=== PATIENT | female | born 1975 | race Caucasian/White ===

== ENCOUNTER → 2017-12-10 14:25 | Outpatient (CLI) | payer OTHER, SELFPAY ==
[2017-12-10 16:55] LABS: Absolute Lymphocyte Count 1.45 X10^3/ul (0.83-4.51); Absolute Neutrophil Count 2.2 X10^3/uL (2.0-7.7); Basophil# 0.04 X10^3/uL; Eosinophil# 0.05 X10^3/uL; Eosinophils% 1.2 % (0-5); Hematocrit 21.4 % (37-47); Lymphocyte # 1.45 X10^3/ul (4.0); Lymphocyte % 35.8 % (19-41); Mean Corp Hgb Conc 27.6 g/gl (32-36); Mean Corpuscular Hgb 18.4 pg (27.0-32.0); Mean Corpuscular Volume 66.9 fL (81-99); Mean Platelet Vol. 11.2 fl (6.2-12.0); Monocyte# 0.31 X10^3/uL; Monocyte% 7.7 % (0-10); Neutrophil # 2.19 X10^3/uL (2.7-7.7); Neutrophil % 54.1 % (47-70); Platelet Count 256 K/mm3 (150-450); RBC Distribution Width CV 17.1 % (11.6-14.6); RBC Distribution Width SD 42.3 fl (35.1-43.9); White Blood Count 4.1 K/mm3 (4.4-11.0)
[2017-12-10 17:01] LABS: Differential Indicated SCAN CRITERIA MET; POSITIVE COUNT YES; POSITIVE DIFFERENTIAL NO; POSITIVE MORPHOLOGY YES
[2017-12-10 17:09] LABS: Hemoglobin 5.9 g/dl (12.0-15.0)
[2017-12-10 17:22] LABS: Anisocytosis 1+; Hypochromasia 1+; Platelet Estimate ADEQUATE (ADEQ); Polychromasia RARE
[2017-12-10 17:23] LABS: Microcytosis 3+
[2017-12-11 12:17] LABS: Pathologist Review Reviewed
== END ==
PROVIDERS: Family Provider Family Medicine; PCP Family Medicine; Visit Provider Nurse Practitioner Adult Health
DX: D64.9 Anemia, unspecified (principal)
CPT/HCPCS: 36415; 85025

== ENCOUNTER → 2017-12-12 10:03 | Outpatient (CLI) | payer OTHER, SELFPAY ==
[2017-12-12] VITALS (7 sets, daily range): BP systolic 92–106; BP diastolic 54–65; PULSE 74–96; RESP 16–18; TEMP 36.3–37.2; O2SAT 98–100; BMI 22.6
== END ==
PROVIDERS: Family Provider Family Medicine; PCP Family Medicine; Visit Provider Family Medicine
DX: D64.9 Anemia, unspecified (principal)
CPT/HCPCS: 36430; 86850; 86900; 86920; 86922; J7050; P9016; A4216

== ENCOUNTER 2018-03-04 10:15 | Day surgery (SDC) | payer OTHER, SELFPAY ==
[2018-03-04] VITALS (8 sets, daily range): BP systolic 102–120; BP diastolic 65–82; PULSE 61–70; RESP 16–18; TEMP 36.4–36.5; O2SAT 95–100; BMI 22.4
[2018-03-04 10:45] LABS: Internal QC Validated? YES +Cl - CLEAR BKGD; Pregnancy, Urine Negative Negative
[2018-03-04 10:49] LABS: Hemoglobin 9.5 g/dl (12.0-15.0); Mean Corp Hgb Conc 29.7 g/gl (32-36); Mean Corpuscular Hgb 22.1 pg (27.0-32.0); Mean Corpuscular Volume 74.4 fL (81-99); Mean Platelet Vol. 11.1 fl (6.2-12.0); Platelet Count 246 K/mm3 (150-450); RBC Distribution Width CV 16.3 % (11.6-14.6); Scan Indicated on CBC? Y/N YES- FLAGS NOTED; White Blood Count 3.7 K/mm3 (4.4-11.0)
[2018-03-04 11:05] LABS: Differential Comment SCANNED
--- NOTE | 2018-03-04 11:47 | PCM.DC.D&C ---
Discharge Diet: No Restrictions Discharge Activity: Return to Normal Activity, May Shower, May Take a Tub Bath - in 2 weeks. Allergies/Adverse Reactions: Allergies No Known Allergies Allergy (Verified 12/12/17 10:19) Medications to take at Discharge Escitalopram Oxalate [Lexapro] 20 mg PO DAILY 12/12/17 traZODone [Desyrel] 50 mg PO QHS 12/12/17 Primary Care Physician: Eduardo Minor MD [Primary Care Provider] - Please Follow Up With: Lola Cortez MD When: as scheduled for post op visit
--- NOTE | 2018-03-04 12:15 | OP.PCM_ITS ---
Operative Report Date of Procedure: 03/04/18 Surgeon: Dr. Lola Cortez Maintenance Worker House Trailer: None Pre op diagnosis: AUB Post op Diagnosis: same Procedure performed: Hysteroscopy, Susi Ablation Complications: none EBL: 5cc Anesthesia: MAC Findings: uterus sounded to implantable devices: none fluids: 400cc IV Crystalloids After informed consent was obtained patient taken to the operating room she is placed in supine position she is given anesthesia simply self insert she is prepped draped normal sterile fashion. Bladder was drained prior to the start of the procedure. At this time the weighted speculum was placed the posterior fornix of the vagina then a single-tooth tenaculum was used to grasp the anterior lip of the cervix. At this time the uterus was sounded to approximately 9cm the endocervical canal sounded to 4 cm. Next cervix was dilated in incremental fashion. Once adequate dilatation was achieved the hysteroscope was inserted using normal saline as distention medium. On hysteroscopy there were no gross abnormalities. Both tubal ostia were visualized. At this time the Susi device was opened. The Susi was set at 5 cm. The device was activated. Prior to activation the field test was performed and cavity was intact. The device was then fired and activated for 120 seconds. Once the 120 seconds was completed the device was removed intact and the tenaculum was removed. Good hemostasis was appreciated. Weighted speculum was removed. Vaginal sweep was performed is negative. There were no complications. Anticipated normal postoperative course for this patient. Instrument and lap count were correct ?2.
== END 2018-03-04 13:37 | disposition home or self-care (01) ==
LOC: SDC 10:15 → AC 10:18
PROVIDERS: Family Provider Family Medicine; PCP Family Medicine; Visit Provider Obstetrics & Gynecology
PROC: 0U5B8ZZ Destruction of Endometrium, Via Natural or Artificial Opening Endoscopic (ICD-10-PCS; CPT 58558; principal; 2018-03-04 11:30)
DX: F32.9 Major depressive disorder, single episode, unspecified (principal); Z79.899 Other long term (current) drug therapy; Z86.2 Personal history of diseases of the blood and blood-forming organs and certain disorders involving the immune mechanism; F41.9 Anxiety disorder, unspecified
CPT/HCPCS: 00952; 58563; 81025; 85027; J7120; J2405

== ENCOUNTER → 2019-07-07 17:59 | Outpatient (CLI) | payer OTHER, SELFPAY ==
[2019-07-13 12:51] LABS: HPV Reflexed? NOT INDICATED
== END ==
PROVIDERS: Family Provider Family Medicine; PCP Family Medicine; Referring Provider Nurse Practitioner Adult Health; Visit Provider Nurse Practitioner Adult Health
DX: Z01.419 Encounter for gynecological examination (general) (routine) without abnormal findings (principal)
CPT/HCPCS: 88175; G0145

== ENCOUNTER → 2019-09-18 10:10 | Outpatient (CLI) | payer OTHER, SELFPAY ==
--- NOTE | 2019-09-18 10:15 | BI_ITS ---
MAMMOGRAPHY - BILATERAL SCREENING 3-D TOMOSYNTHESIS REASON FOR EXAM: Female, 44 years old. BILAT SCREENING - FAM HX OF MAT AUNT @ AGE 40''S and amp;amp; MAT 2ND COUSIN @ AGE 39 - NO PREV SURG''S - PT HAS LOST 10-15# SINCE LAST MAMM OF 2017 PERTINENT HISTORY: No significant family history. TECHNIQUE: 2-D mammograms and 3-D Tomosynthesis of the breast (s) were performed. CAD was performed. COMPARISON: July 29, 2017. FINDINGS: The breast composition is heterogeneously dense that can obscure small breast masses. I now see an approximately 1 cm, ovoid, isodense nodule/mass within the left breast mid zone slightly outer upper location positioned approximately 4.5 cm from the nipple base. I recommend further dilation with sonographic characterization. There are no suspicious microcalcifications. There is no evident architectural distortion. There is no skin thickening or nipple/skin retraction. BI/SCREEN MAMM (CAD) W/TEDDY BILAT IMPRESSION: 1 cm left breast nodule/mass as above. Sonographic characterization highly recommended. ASSESSMENT CATEGORY: BIRADS Category 0: Incomplete. Need additional imaging evaluation as above. A letter regarding these results will be sent to the patient by the facility within 30 days. FOLLOW UP RECOMMENDATION: Ultrasound Recommended. (I) Approximately 10% of breast cancers are not detected by mammography. A normal mammogram should not delay biopsy of a clinically suspicious abnormality. Electronically Signed: Bowen Villaseñor MD at 14:49 EST , Service support ,
== END ==
PROVIDERS: Family Provider Family Medicine; PCP Family Medicine; Referring Provider Nurse Practitioner Adult Health; Visit Provider Nurse Practitioner Adult Health
DX: Z12.31 Encounter for screening mammogram for malignant neoplasm of breast (principal)
CPT/HCPCS: 77063; 77067

== ENCOUNTER → 2019-09-22 09:22 | Outpatient (CLI) | payer OTHER, SELFPAY ==
--- NOTE | 2019-09-22 09:25 | US_ITS ---
STUDY: ULTRASOUND BREAST - LEFT REASON FOR EXAM: Female, 44 years old. Abnormal screening mammogram. TECHNIQUE: Axial and longitudinal images of the LEFT breast were performed with a high resolution ultrasound transducer. # OF IMAGES: 32 COMPARISON: Comparison is made with prior mammogram dated September 18, 2019. FINDINGS: LEFT Breast: The mammographic abnormality corresponds to a 1.1 cm x 1 cm x 0.5 cm septated cyst at the 1:00 position of the breast at 4 cm from nipple. This also evidence of a 5 mm x 5 mm x 4 mm cyst at the 3:00 position of the breast at 4 cm from the nipple. US/Breast Limited Unilateral IMPRESSION: 2 small cysts. Routine mammographic follow-up is recommended. ASSESSMENT CATEGORY: BIRADS Category 2: Benign. A letter regarding these results will be sent to the patient by the facility within 30 days. Electronically Signed: Kuldeep Cortez, at 14:23 EST , Service support ,
== END ==
PROVIDERS: Family Provider Family Medicine; PCP Family Medicine; Referring Provider Nurse Practitioner Adult Health; Visit Provider Nurse Practitioner Adult Health
DX: R92.8 Other abnormal and inconclusive findings on diagnostic imaging of breast (principal)
CPT/HCPCS: 76642

== ENCOUNTER → 2020-07-27 14:56 | Outpatient (CLI) | payer OTHER, SELFPAY ==
[2018-03-04 10:40] VITALS: BMI 22.4
[2020-07-27 18:53] LABS: Thyroid Stim Hormone (TSH) 0.67 uIU/mL (0.358-3.74)
[2020-07-28 08:04] LABS: SARS-COV-2 TOTAL ABS Nonreactive (Nonreactive)
== END ==
PROVIDERS: PCP Family Medicine; Referring Provider Family Medicine; Visit Provider Nurse Practitioner Adult Health
DX: L65.9 Nonscarring hair loss, unspecified (principal); Z20.828 Contact with and (suspected) exposure to other viral communicable diseases
CPT/HCPCS: 36415; 84443; 86769

== ENCOUNTER → 2020-09-19 11:26 | Outpatient (CLI) | payer OTHER, SELFPAY ==
--- NOTE | 2020-09-19 11:29 | BI_ITS ---
MAMMOGRAPHY - BILATERAL SCREENING REASON FOR EXAM: Female, 45 years old. Routine annual screening examination. PERTINENT HISTORY: Aunt with breast cancer. TECHNIQUE: Digital bilateral breast teddy (3D mammographic acquisition) in the CC and MLO projections. 2-D mediolateral oblique (MLO) and craniocaudad (CC) views of both breasts were obtained. CAD: Full Field Digital Mammography with Computer Added Detection was performed. COMPARISON: Comparison is made with prior examination dated 09/18/2019 and 07/29/2017. FINDINGS: Breast Composition: The breasts are heterogeneously dense, which may obscure small masses. Stable 1 cm well-defined nodule in the upper lateral aspect of the left breast. This was demonstrated to be a cyst on prior sonogram. No other significant abnormalities are identified. There has been no significant change since the prior study. BI/SCREEN MAMM (CAD) W/TEDDY BILAT IMPRESSION: Stable bilateral screening mammogram. Yearly follow-up mammogram recommended. (A) ASSESSMENT CATEGORY: BIRADS Category 2: Benign. A letter regarding these results will be sent to the patient by the facility within 30 days. Approximately 10% of breast cancers are not detected by mammography. A normal mammogram should not delay biopsy of a clinically suspicious abnormality. [id number] Electronically Signed: Kuldeep Cortez, at 12:55 EST , Service support ,
== END ==
PROVIDERS: PCP Family Medicine; Referring Provider Nurse Practitioner Adult Health; Visit Provider Nurse Practitioner Adult Health
DX: Z12.31 Encounter for screening mammogram for malignant neoplasm of breast (principal)
CPT/HCPCS: 77063; 77067

== ENCOUNTER → 2022-07-02 | Outpatient (CLI) | payer OTHER, SELFPAY ==
--- NOTE | 2022-07-02 08:51 | BI_ITS ---
MAMMOGRAPHY - BILATERAL SCREENING REASON FOR EXAM: Female, 47 years old. Routine annual screening examination. PERTINENT HISTORY: Aunt with breast cancer. TECHNIQUE: Digital bilateral breast stephanie (3D mammographic acquisition) in the CC and MLO projections. 2-D mediolateral oblique (MLO) and craniocaudad (CC) views of both breasts were obtained. CAD: Full Field Digital Mammography with Computer Added Detection was performed. COMPARISON: Comparison is made with prior study dated 09/19/2020 and 09/18/2019. FINDINGS: Breast Composition: The breasts are heterogeneously dense, which may obscure small masses. There are no dominant masses or suspicious calcifications. Stable 1 cm well-defined nodule in the upper lateral aspect of the left breast. This was demonstrated to be a cyst on the prior sonogram. No other significant abnormalities are identified. There has been no significant change since the prior study. BI/SCREENING MAMM (CAD), BILAT IMPRESSION: Stable bilateral screening mammogram. Yearly follow-up mammogram recommended. (A) ASSESSMENT CATEGORY: BIRADS Category 2: Benign. A letter regarding these results will be sent to the patient by the facility within 30 days. Approximately 10% of breast cancers are not detected by mammography. A normal mammogram should not delay biopsy of a clinically suspicious abnormality. [id number] Electronically Signed: Kuldeep Cortez MD at 10:10 EDT ,
== END | disposition home or self-care (01) ==
LOC: OPBI 08:49
PROVIDERS: PCP Family Medicine; Referring Provider Nurse Practitioner Family; Visit Provider Nurse Practitioner Family
DX: Z12.31 Encounter for screening mammogram for malignant neoplasm of breast (principal); N63.0 Unspecified lump in unspecified breast
CPT/HCPCS: 77067

== ENCOUNTER → 2022-07-16 | Outpatient (CLI) | payer OTHER, SELFPAY ==
[2022-07-27 14:20] LABS: HPV APTIMA, High Risk Negative (Negative); HPV Reflexed? YES, CHARGE PATIENT
== END | disposition home or self-care (01) ==
LOC: LABSPEC 11:55
PROVIDERS: PCP Family Medicine; Referring Provider Nurse Practitioner Family; Visit Provider Nurse Practitioner Family
DX: Z12.4 Encounter for screening for malignant neoplasm of cervix (principal)
CPT/HCPCS: 87624; 88175; G0145

== ENCOUNTER 2023-07-02 12:30 | Day surgery (SDC) | payer OTHER, SELFPAY ==
--- NOTE | 2023-07-02 | COLBX_PTH ---
PATIENT: BETHANIE GIVENS LOC: EN U#:[id number] AGE/SX: 48/F ROOM: RE07/02/[address]: Dr. Jacques Núñez DO : 1975 BED: DIS: 07/02/2023 SPEC #: [id number] RECD: 07/02/23 18:13 STATUS: DIANA SOMMER #: [id number] ANNA: 07/02/23 00:[address]: Jacques Núñez DEPT: SURGICAL PATHOLOGY RECD BY: Tristen Crane ENTERED: 07/03/23 09:21 SP TYPE: COLON BX BEAU DR: Dr. Eduardo Minor MD Tissues: A - Sigmoid colon biopsy B - Rectum, NOS Procedures: Surgery Specimen Level IV HEADER OPERATION: Colonoscopy, biopsy, polypectomy PRE-OP DIAGNOSIS: Screening TISSUE SUBMITTED: A - Sigmoid polyp biopsy, B - Rectal polyp MICROSCOPIC DIAGNOSIS A. Sigmoid polyp, biopsy: Hyperplastic polyp. B. Rectal polyp, polypectomy: Hyperplastic polyp. JORGE:marjan 07/04/2023 MICROSCOPIC DESCRIPTION Slides are reviewed. GROSS DESCRIPTION A - Received in fixative is one container labeled with the patient's name and designated sigmoid polyp biopsy. The specimen consists of one irregular fragment of light ceballos soft tissue that measures 0.3 x 0.3 x 0.1 cm. The specimen is totally submitted in one cassette. B - Received in fixative is one container labeled with the patient's name and designated rectal polyp biopsy. The specimen consists of one irregular fragment of light ceballos soft tissue that measures 0.5 x 0.2 x 0.2 cm. The specimen is totally submitted in one cassette. / JORGE:marjan 07/03/2023 TC:1 CPT: 73848 x2
--- NOTE | 2023-07-02 12:57 | HP.PCM_ITS ---
[facility] - General General Date of Admission: 07/02/23 Date of Service: 07/02/23 Chief Complaint: Screening colonoscopy HPI Narrative BETHANIE GIVENS, is a 48 F who presents today for screening colonoscopy. She has not colon screen in past. She has no family history of colon cancer. She does not have any problems with her bowels. She denies any bleeding per rectum. She denies any constipation or diarrhea. Overall she is in very good health. [facility] Medical History (Updated 06/25/23 @ 12:13 by Kimmy Martins) Allergic rhinitis Anemia Anxiety Depression Fibroid, uterine CHIKA (generalized anxiety disorder) Hx of vaginal delivery Injury of head and neck Insomnia Migraine headache Seasonal affective disorder Social anxiety disorder Syncope Wears glasses Home Medications escitalopram oxalate 20 mg tablet 20 mg PO PRN ANXIETY/DEPRESSION 12/12/17 [History Last Taken Unknown] trazodone 50 mg tablet 50 mg PO QHS 12/12/17 [History Last Taken Unknown] Allergy/AdvReac Type Severity Reaction Status Date / Time nitrofurantoin AdvReac Nausea Verified 07/02/23 12:58 [From Macrobid] Family History (Updated 03/11/23 @ 12:40 by Shey Brownlee) Aunt Breast cancer Surgical History (Updated 06/25/23 @ 12:13 by Kimmy Martins) History of hysteroscopy Social History (Updated 03/11/23 @ 12:40 by Shey Brownlee) current occupational status: employed Smoking Status: Never smoker ROS Review of Systems ROS Unobtainable: other Constitutional Constitutional: Denies fatigue, fever(s), poor appetite, weight gain or weight loss ENT HEENT: Denies mouth lesions Cardiovascular Cardiovascular: Denies abdominal bloating, abdominal edema or abdominal pain Respiratory/Chest Respiratory/Chest: Denies change in mental status, change in phlegm color, chest congestion or chest tightness Gastrointestinal Gastrointestinal: Denies belching, bloating, change in bowel habits, change in stool character, chewing difficulty, coffee ground emesis, constipation, cramping, diarrhea, dyspepsia, dysphagia, early satiety, excessive flatus, fecal incontinence, heartburn, hematemesis, hematochezia, hemorrhoids, loose stools, melena, nausea, odynophagia, rectal bleeding, tenesmus, vomiting or weight changes Genitourinary Genitourinary: Denies abdominal discomfort, burning urination or itching Musculoskeletal Musculoskeletal: Reports as per HPI; Denies muscle weakness or myalgias Integumentary Integumentary: Denies jaundice Neurologic Neurologic: Denies lack of coordination or weakness Psychiatric Psychiatric: Denies confusion, depression, memory loss, mood swings, paranoia or suicidal ideation Endocrine Endocrinology: Denies systems reviewed and no addt'l complaints, except as documented Hematologic/Lymphatic Hematologic/Lymphatic: Denies anemia, easy bleeding, easy bruising or lymphadenopathy Allergic/Immunologic Allergic/Immunologic: Denies systems reviewed and no addt'l complaints, except as documented Physical Exam Const alert General Appearance: cooperative Orientation / Consciousness: oriented to person HEENT hearing grossly normal bilaterally Head and Scalp: normal to inspection Face and Sinus: face symmetric Nose: external nose normal Mouth: oral and palatal mucosa normal Eyes conjunctivae normal General Eye: normal appearance of both eyes Neck full ROM General: normal visual inspection Lymph Lymphatic: no lymphadenopathy noted Chest inspection of chest normal and palpation of chest normal Chest: symmetrical chest wall rise Resp normal respiratory effort Effort and Inspection: able to speak in complete sentences Cardio regular rate GI non-distended Percussion: normal to percussion Rectal Exam: deferred Neuro Speech: speech normal Gait (Neuro): normal gait Assessment & Plan Assessment/Plan (1) Encounter for screening for malignant neoplasm of colon: PLAN: She was explained alternatives, risk, benefits include not withstanding bleeding, infection, sepsis, perforation, need for emergent surgery . She will have an ASA of 2.
[2023-07-02 13:00] VITALS: BP 118/79; PULSE 78; RESP 16; TEMP 36.4; O2SAT 100; BMI 21.4
[2023-07-02] MEDS: Lactated Ringers 1,000 ML 15 ML IV (13:03)
--- NOTE | 2023-07-02 14:08 | OP.COLON_ITS ---
Patient Name: Tessa Iverson Procedure Date: 07/02/2023 1:34 PM Date of : 1975 Age: 48 Procedure: Colonoscopy Indications: Screening for colorectal malignant neoplasm Providers: Jacques Núñez DO Medicines: Monitored Anesthesia Care Patient Profile: This is a 48 year old female. Refer to note in patient chart for documentation of history and physical. Last Colonoscopy: none. The patient's first colonoscopy is today. Complications: No immediate complications. Procedure: Pre-Anesthesia Assessment: - Prior to the procedure, a History and Physical was performed, and patient medications and allergies were reviewed. The risks and benefits of the procedure and the sedation options and risks were discussed with the patient. All questions were answered and informed consent was obtained. Patient identification and proposed procedure were verified by the physician in the pre-procedure area. Mental Status Examination: alert and oriented. Airway Examination: normal oropharyngeal airway and neck mobility. Respiratory Examination: clear to auscultation. CV Examination: normal. Prophylactic Antibiotics: The patient does not require prophylactic antibiotics. Prior Anticoagulants: The patient has taken no anticoagulant or antiplatelet agents. ASA Grade Assessment: III - A patient with severe systemic disease. After reviewing the risks and benefits, the patient was deemed in satisfactory condition to undergo the procedure. The anesthesia plan was to use monitored anesthesia care (MAC). Immediately prior to administration of medications, the patient was re-assessed for adequacy to receive sedatives. The heart rate, respiratory rate, oxygen saturations, blood pressure, adequacy of pulmonary ventilation, and response to care were monitored throughout the procedure. The physical status of the patient was re-assessed after the procedure. After I obtained informed consent, the scope was passed under direct vision. Throughout the procedure, the patient's blood pressure, pulse, and oxygen saturations were monitored continuously. The Colonoscope was introduced through the anus and advanced to the cecum, identified by appendiceal orifice and ileocecal valve. The colonoscopy was performed without difficulty. The patient tolerated the procedure well. The quality of the bowel preparation was good. The ileocecal valve, appendiceal orifice, and rectum were photographed. Scope In: 1:45:28 PM Scope Withdrawal Time 0 hours 9 minutes 54 seconds Scope Out: 2:01:20 PM Total Procedure Duration Time 0 hours 15 minutes 52 seconds Findings: The perianal and digital rectal examinations were normal. Two small-mouthed diverticula were found in the recto-sigmoid colon. A 9 mm polyp was found in the rectum. The polyp was sessile. The polyp was removed with a hot snare. Resection and retrieval were complete. Verification of patient identification for the specimen was done. Estimated blood loss was minimal. A 5 mm polyp was found in the sigmoid colon. The polyp was sessile. The polyp was removed with a jumbo cold forceps. Resection and retrieval were complete. Verification of patient identification for the specimen was done. Estimated blood loss was minimal. The exam was otherwise without abnormality on direct and retroflexion views. Impression: - Diverticulosis in the recto-sigmoid colon. - One 9 mm polyp in the rectum, removed with a hot snare. Resected and retrieved. - One 5 mm polyp in the sigmoid colon, removed with a jumbo cold forceps. Resected and retrieved. - The examination was otherwise normal on direct and retroflexion views. Recommendation: - Discharge patient to home. - Resume previous diet. - Continue present medications. - Await pathology results. - Repeat colonoscopy in 5 years for surveillance. Procedure Code(s): --- Professional --- 57057, Colonoscopy, flexible; with removal of tumor(s), polyp(s), or other lesion(s) by snare technique 96484, 59, Colonoscopy, flexible; with biopsy, single or multiple CPT copyright 2021 [employer]. All rights reserved. The codes documented in this report are preliminary and upon death surveys coder review may be revised to meet current compliance requirements. Jacques Núñez DO 07/02/2023 2:08:11 PM This report has been signed electronically. Number of Addenda: 0 Note Initiated On: 07/02/2023 1:34 PM
--- NOTE | 2023-07-02 14:08 | OP.CCLET_ITS ---
07/02/2023 Eduardo Minor [address] [place] [address] Re : Colonoscopy procedure for Tessa Iverson Dear Dr. Minor This procedure was performed on Sunday, July 02, 2023. My impressions and recommendations are as follows: Impressions : - Diverticulosis in the recto-sigmoid colon. - One 9 mm polyp in the rectum, removed with a hot snare. Resected and retrieved. - One 5 mm polyp in the sigmoid colon, removed with a jumbo cold forceps. Resected and retrieved. - The examination was otherwise normal on direct and retroflexion views. Recommendations : - Discharge patient to home. - Resume previous diet. - Continue present medications. - Await pathology results. - Repeat colonoscopy in 5 years for surveillance. My findings are described in the full procedure note, which is enclosed. If I can be of further assistance, please feel free to contact me at . Sincerely, Jacques Núñez, 07/02/2023 2:08:11 PM This report has been signed electronically.
[2023-07-02 14:09] VITALS: BP 101/64; BP 118/79; PULSE 87; RESP 18; TEMP 36.3; O2SAT 99
[2023-07-02 14:14] VITALS: BP 101/63; BP 118/79; PULSE 74; RESP 16; O2SAT 100
[2023-07-02 14:19] VITALS: BP 102/74; BP 118/79; PULSE 60; RESP 18; O2SAT 100
[2023-07-02 14:24] VITALS: BP 106/67; BP 118/79; PULSE 68; RESP 18; O2SAT 100
[2023-07-02 14:42] VITALS: BP 118/79
== END 2023-07-02 15:21 | disposition home or self-care (01) ==
LOC: EN 12:31 → AC 12:33
PROVIDERS: PCP Family Medicine; Referring Provider Family Medicine; Visit Provider Internal Medicine Gastroenterology
PROC: 0DJD8ZZ Inspection of Lower Intestinal Tract, Via Natural or Artificial Opening Endoscopic (ICD-10-PCS; CPT 45378; principal; 2023-07-02 13:25)
DX: Z12.11 Encounter for screening for malignant neoplasm of colon (principal); K62.1 Rectal polyp; K57.30 Diverticulosis of large intestine without perforation or abscess without bleeding; K63.5 Polyp of colon; Z80.0 Family history of malignant neoplasm of digestive organs
CPT/HCPCS: 45385; 45380; 88305; J7120; J2405

== ENCOUNTER → 2023-12-19 | Outpatient (CLI) | payer OTHER, SELFPAY ==
--- NOTE | 2023-12-19 12:29 | BI_ITS ---
MAMMOGRAPHY - BILATERAL SCREENING REASON FOR EXAM: Female, 48 years old. Routine annual screening examination. PERTINENT HISTORY: Aunt with breast cancer. TECHNIQUE: Digital bilateral breast teddy (3D mammographic acquisition) in the CC and MLO projections. 2-D mediolateral oblique (MLO) and craniocaudad (CC) views of both breasts were obtained. CAD: Full Field Digital Mammography with Computer Added Detection was performed. COMPARISON: Comparison is made with prior study July 02, 2022 and September 19, 2020. FINDINGS: Breast Composition: The breasts are heterogeneously dense, which may obscure small masses. There are no dominant masses or suspicious calcifications. Stable 1 cm well-defined nodule in the upper lateral aspect of the left breast. This was demonstrated to be a cyst on prior sonogram. No other significant abnormalities are identified. There has been no significant change since the prior study. BI/SCRN MAMM (CAD)W/TEDDY BILAT IMPRESSION: Stable bilateral screening mammogram. Yearly follow-up mammogram recommended. (A) ASSESSMENT CATEGORY: BIRADS Category 2: Benign. A letter regarding these results will be sent to the patient by the facility within 30 days. Approximately 10% of breast cancers are not detected by mammography. A normal mammogram should not delay biopsy of a clinically suspicious abnormality. [id number] Electronically Signed: Kuldeep Cortez MD at 14:11 EDT ,
== END | disposition home or self-care (01) ==
LOC: OPBI 12:29
PROVIDERS: PCP Family Medicine; Referring Provider Nurse Practitioner Family; Visit Provider Nurse Practitioner Family
DX: Z12.31 Encounter for screening mammogram for malignant neoplasm of breast (principal)
CPT/HCPCS: 77063; 77067

== ENCOUNTER 2025-05-18 12:02 | Emergency (ER) | payer OTHER, SELFPAY ==
[2025-05-18 12:02] VITALS: BP 124/76; PULSE 68; RESP 18; TEMP 37.2; O2SAT 98; BMI 26.3
[2025-05-18 12:04] VITALS: O2SAT 96
--- NOTE | 2025-05-18 12:04 | EKG12_ITS ---
Test Reason : GENERAL Blood Pressure : */* mmHG Vent. Rate : 66 BPM Atrial Rate : 66 BPM P-R Int : 148 ms QRS Dur : 78 ms QT Int : 438 ms P-R-T Axes : 57 -15 -3 degrees QTcB Int : 459 ms Normal sinus rhythm Normal ECG Confirmed by Chencho Wasserman ([id number]), online editor MARK JENSEN ([id number]) on 05/19/2025 8:19:05 AM Referred By: Confirmed By: Chencho Wasserman
--- NOTE | 2025-05-18 12:30 | RAD_ITS ---
PROCEDURE: CHEST 1 VIEW (PORTABLE) 05/18/2025 REASON FOR EXAM: CHEST PAIN TECHNIQUE: Frontal view of the chest. COMPARISON: None FINDINGS: Hardware: EKG electrodes are seen. Heart: The heart size is normal. Lungs: The lungs are clear. Bones: Degenerative changes are identified within the thoracic spine. Other: RAD/Chest 1 View (Portable) IMPRESSION: No Acute Findings. Reading Location: [place] [address]
[2025-05-18 12:36] LABS: Hematocrit 38.6 % (37-47); Hemoglobin 13.1 g/dL (12.0-15.0); Immature Granulocytes Count 0.020 X10^3/uL (0.0-0.0); Mean Corp Hgb Conc 33.9 g/dL (32-36); Mean Corpuscular Volume 88.1 fL (81-99); Mean Platelet Vol. 10.9 fl (6.2-12.0); NRBC Flagged by Analyzer 0 % (0-5); Platelet Count 231 K/mm3 (150-450); RBC Distribution Width CV 12.3 % (11.6-14.6); RBC Distribution Width SD 39.8 fl (35.1-43.9); Red Blood Count 4.38 M/mm3 (4.2-5.4); White Blood Count 3.7 K/mm3 (4.4-11.0)
[2025-05-18 13:02] VITALS: BP 111/78; PULSE 74; RESP 20; O2SAT 96
[2025-05-18 13:04] LABS: Anion Gap 10 (5-15); BUN 12 mg/dL (4-19); BUN/Creat Ratio 15.6 RATIO (10-20); Calcium,Total 9.6 mg/dL (7.6-11.0); Carbon Dioxide 23.0 mmol/L (21.0-32.0); Chloride 106 mmol/L (98-108); Estimated Creatinine Clearance 80.78 ml/min (50-250); Glucose 146 mg/dL (70-99); Potassium 4.1 mmol/L (3.3-5.1); Troponin T High Sensitivity 10 ng/L (<=14)
[2025-05-18 14:00] VITALS: BP 115/77; PULSE 63; RESP 13; O2SAT 98
[2025-05-18 15:00] VITALS: BP 119/79; PULSE 61; RESP 10; O2SAT 97
[2025-05-18 15:04] LABS: Troponin T High Sens 2 HR < 6 ng/L (<=14)
[2025-05-18 15:30] VITALS: BP 124/85; PULSE 67; RESP 13; TEMP 36.9; O2SAT 96
--- NOTE | 2025-05-18 16:59 | EDS_ITS ---
HPI History of Present Illness Chief Complaint: Chest Pain Narrative Narrative: Patient is a 50-year-old female presenting to the emergency department for chest pain. Patient has no significant past medical history. Denies any history of hypertension, hyperlipidemia or diabetes. Denies any history of send family cardiac . Denies any recent syncope. Reports that yesterday she developed midsternal chest pain that lasted for a few minutes. Reports that she walked downstairs in the basement and after she was walking around in the basement she developed the chest pain. States that improved after a few minutes. States that today this morning she developed the same chest pain while she was at her desk writing. States that again lasted a few minutes and then went away. Does not have any chest pain at this time. Denies any shortness of breath. Denies any fever, chills, cough, sore throat. Denies any diaphoresis, nausea or vomiting. Has never had this happen before. [facility] Medical History Wears glasses Depression Anxiety Anemia Migraine headache Injury of head and neck Syncope Hx of vaginal delivery Fibroid, uterine Seasonal affective disorder Insomnia Allergic rhinitis Social anxiety disorder CHIKA (generalized anxiety disorder) Home Medications ?Medication ?Instructions ?Recorded ?Last Taken ?Type escitalopram oxalate 20 mg tablet 20 mg PO PRN ANXIETY /DEPRESSION 12/12/17 Unknown History trazodone 50 mg tablet 50 mg PO QHS 12/12/17 Unknow n History Allergy/AdvReac Type Severity Reaction Status Date / Time nitrofurantoin (From AdvReac Nausea Verified 05/18/25 12:02 Macrobid) Family History Aunt Breast cancer Surgical History History of hysteroscopy Social History current occupational status: employed Smoking Status: Never smoker ROS ROS ED ROS Narrative see HPI EXAM Physical Exam Narrative Exam Narrative: Vital signs: Reviewed General: Alert and oriented. No acute distress HEENT: Head is normocephalic and atraumatic, sinuses nontender, pupils equal round and reactive. Nares are patent. Oropharynx and throat exams normal. Neck: Supple without lymphadenopathy nontender Cardiovascular: Regular rate and rhythm, no murmurs. No rubs or gallops. Normal S1 and S2 Respiratory: Clear to auscultation bilaterally. No wheezes, rales, rhonchi Abdominal: Soft and nontender. Normal bowel sounds. No guarding or rebound. Nonsurgical abdomen Extremities: No tenderness. No bruising. Normal range of motion. Normal sensation. Skin: No rash or redness. Neurological: Cranial nerves II through XII are grossly intact. Normal strength and sensation. Normal cerebellar function The rest of the physical exam is unremarkable Const Vital Signs: 05/18/25 12:02 05/18/25 12:04 05/18/25 12:15 Temperature 98.9 F Temperature Source Oral Pulse Rate 68 Respiratory Rate 18 Respiratory Effort Normal Non-Labored Blood Pressure 124/76 H Blood Pressure Mean 92 Pulse Ox 98 96 Oxygen Delivery Method Room Air Room Air 05/18/25 13:02 05/18/25 14:00 05/18/25 15:00 Temperature Temperature Source Pulse Rate 74 63 61 Respiratory Rate 20 H 13 10 L Respiratory Effort Blood Pressure 111/78 115/77 119/79 Blood Pressure Mean 89 89 92 Pulse Ox 96 98 97 Oxygen Delivery Method Room Air Room Air Room Air 05/18/25 15:30 Temperature 98.4 F Temperature Source Pulse Rate 67 Respiratory Rate 13 Respiratory Effort Blood Pressure 124/85 H Blood Pressure Mean 98 Pulse Ox 96 Oxygen Delivery Method Heart Score History: Moderately Suspicious ECG: Normal Age: >45 - <65 years Risk Factors: No Risk Factors Troponin: </= Normal Limit Score: 2 MDM MDM MDM Narrative Medical decision making narrative: Patient is a 50-year-old female presenting to emergency department for chest pain. Patient was seen and examined. Vitals are stable. Resting in bed comfortably in no acute distress. EKG shows normal sinus rhythm. There were no ischemic changes. No dysrhythmia. CBC with leukopenia which has been seen on previous labs. Normal hemoglobin. BMP with no significant abnormalities, mild hyperglycemia of 146. There is a troponin of 10, reflex less than 6. No significant delta change. Low risk on heart score. Chest x-ray reviewed by myself, no opacities, pneumothorax, widened mediastinum. Radiology read with negative x-ray as well. Updated patient on negative workup. Recommended that she follow-up with her primary care doctor soon as possible and return to the ED with any new or worsening symptoms. Patient discharged from the Emergency Department. I do not feel that the patient's evaluation reveals any acute reason for admission at this time. I instructed them to either follow-up with their primary care physician or promptly return to the Emergency Department for reevaluation should symptoms worsen or new symptoms develop. I explained what symptoms would indicate the need to return to the emergency department. Shared decision making was used. The patient voiced understanding of the treatment plan and is agreeable with it. Clinical impression Chest pain History & Record Review Discussion w/independent historian: Patient Lab Data Attestation: I reviewed the patient's lab results. Labs: Laboratory Results - last 24 hr 05/18/25 05/18/25 12:14 14:12 WBC 3.7 L RBC 4.38 Hgb 13.1 Hct 38.6 MCV 88.1 MCH 29.9 MCHC 33.9 RDW Std Deviation 39.8 RDW Coeff of Gt 12.3 Plt Count 231 MPV 10.9 Immature Gran % (Auto) 0.500 Neut % (Auto) 39.1 L Lymph % (Auto) 49.5 H Navarro % (Auto) 8.4 Eos % (Auto) 1.4 Baso % (Auto) 1.1 H Absolute Neuts (auto) 1.5 L Absolute Lymphs (auto) 1.83 Nucleated RBC % 0 Sodium 138 Potassium 4.1 Chloride 106 Carbon Dioxide 23.0 Anion Gap 10 BUN 12 Creatinine 0.78 Estim Creat Clear Calc 80.78 Est GFR (MDRD) Non-Af 91 BUN/Creatinine Ratio 15.6 Glucose 146 H Calcium 9.6 Troponin T High Sens 10 Troponin T Hi Sens 2 Hr < 6 Radiography Diagnostic Testing: Clinical Impression(s) from Imaging Studies Chest X-Ray 05/18/25 12:30 IMPRESSION: No Acute Findings. Reading Location: [facility] Discharge Plan Triage Chief Complaint: Chest Pain ED Provider: Yael Colbert Dx/Rx/DC Orders Instructions: ED Chest Pain, Uncertain Cause Prescriptions: No Action trazodone 50 MG tablet 50 mg PO QHS escitalopram oxalate 20 MG tablet 20 mg PO PRN Primary Care Provider: Eduardo Minor Referrals: Eduardo Minor MD [Primary Care Provider] - 2 Days Activity Restrictions/Additional Instructions: Your evaluation in the Emergency Department did not reveal any acute reason for admission. However, I want to emphasize that you may be early in the course of a disease process or illness even if it is not present. For this reason you should follow-up within 24 hours for reevaluation with either your primary care physician or if necessary back here in the Emergency Department. You should return to the Emergency Department immediately if your symptoms worsen or new symptoms develop. Print Language: Luxembourgish Disposition Disposition: Home, Self Care Discharge Date/Time: 05/18/25 15:36
== END 2025-05-18 15:36 | disposition home or self-care (01) ==
PROVIDERS: Emergency Provider Student in an Organized Health Care Education/Training Program; PCP Family Medicine; Visit Provider Student in an Organized Health Care Education/Training Program
DX: R07.9 Chest pain, unspecified (principal); F41.1 Generalized anxiety disorder; Z79.899 Other long term (current) drug therapy
CPT/HCPCS: 71045; 80048; 84484; 85025; 93005; 99284; A4216

== ENCOUNTER → 2025-05-20 | Outpatient (CLI) | payer OTHER, SELFPAY ==
[2025-05-23 10:08] LABS: HPV APTIMA, High Risk Negative (Negative)
== END | disposition home or self-care (01) ==
LOC: LABSPEC 11:09
PROVIDERS: PCP Family Medicine; Visit Provider Family Medicine
DX: Z12.4 Encounter for screening for malignant neoplasm of cervix (principal)
CPT/HCPCS: 87624; 88175; G0145

== ENCOUNTER → 2025-06-09 | Outpatient (CLI) | payer OTHER, SELFPAY ==
--- NOTE | 2025-06-09 12:45 | BI_ITS ---
EXAM: SCRN MAMM (CAD)W/TEDDY BILAT DATE: 06/09/2025 CLINICAL HISTORY: F, Age 50 y/o , SCREENING FOR BREAST CANCER Aunt with breast cancer. TECHNIQUE: Procedure Code: [id number] Modality: MG Procedure: SCRN MAMM (CAD)W/TEDDY BILAT COMPARISON: Prior exam(s) dated prior study dated December 19, 2023.. FINDINGS: TISSUE DENSITY: The breasts are heterogeneously dense, which may obscure small masses. Bilateral Breast Mammographic Findings: No significant masses, calcifications or other abnormalities are identified. Stable 1 cm well-defined nodule in the upper lateral aspect of the left breast. This was demonstrated to be a cyst on prior sonogram. No suspicious masses, areas of developing architectural distortion, or suspicious calcifications. There has been no significant interval change. BI/SCRN MAMM (CAD)W/TEDDY BILAT IMPRESSION: Stable bilateral screening mammogram. OVERALL FINAL ASSESSMENT BI-RADS 2: BENIGN RECOMMENDATION: Routine annual follow-up in 1 Year Additional Recommendation none A letter with findings and recommendations will be mailed to the patient. Reading Location: [id number]
== END | disposition home or self-care (01) ==
LOC: OPBI 12:40
PROVIDERS: PCP Family Medicine
DX: Z12.31 Encounter for screening mammogram for malignant neoplasm of breast (principal); Z80.3 Family history of malignant neoplasm of breast
CPT/HCPCS: 77063; 77067

== ENCOUNTER → 2025-09-14 | Outpatient (CLI) | payer OTHER, SELFPAY ==
--- NOTE | 2025-09-14 07:56 | CT_ITS ---
PROCEDURE: LIMITED CHEST CT CARDIAC ONLY 09/14/2025 REASON FOR EXAM: HYPERLIPIDEMIA AND STRONG FHX OF EARLY CAD/RI. GIVEN 50MG METOPR TECHNIQUE: Procedure Code: [id number] Modality: CT Procedure: LIMITED CHEST CT CARDIAC ONLY One or more dose reduction techniques were used (e.g., Automated exposure control, adjustment of the mA and/or kV according to patient size, use of iterative reconstruction technique). RADIATION DOSE SUMMARY: CTDlvol: 12.19 mGy DLP: 219.42 mGycm COMPARISON: Chest x-ray of 05/18/2025. CT/Limited Chest CT Cardiac Only IMPRESSION: Limited imaging of the lungs demonstrates no acute process. No pleural effusion or pneumothorax is seen in visualized areas. No adenopathy is noted. The visualized upper abdomen demonstrates no significant abnormality. Reading Location: [place] [id number]
== END | disposition home or self-care (01) ==
LOC: CT 07:56
PROVIDERS: PCP Family Medicine; Referring Provider Family Medicine; Visit Provider Family Medicine
DX: E78.00 Pure hypercholesterolemia, unspecified (principal)
CPT/HCPCS: 75571; 76380